=== PATIENT | female | born 1950 | race Caucasian/White ===

== ENCOUNTER 2023-12-29 05:18 | Emergency (ER) | payer OTHER ==
[~2023-12-29] VITALS: Ht 162.6 cm; Wt 68.0 kg
[2023-12-29 05:35] VITALS: O2SAT 98
[2023-12-29] MEDS: ACETAMINOPHEN 325MG TABLET PO ONE (05:59)
[2023-12-29 06:43] LABS: BASOPHILS % 0.9 % (0.0-2.0); EOSINOPHILS % 4.1 % (0.0-5.0); LYMPHOCYTES % 25.7 % (20.0-50.0); MEAN CORPUSCULAR HEMOGLOBIN 27.6 pg (28.0-32.0); MEAN CORPUSCULAR HGB CONC 32.4 g/dL (31.0-37.0); MEAN CORPUSCULAR VOLUME 85.2 fL (81.0-99.0); MEAN PLATELET VOLUME 8.2 fl (7.4-10.4); MONOCYTES % 6.9 % (2.0-8.0); NEUTROPHILS % 62.4 % (40.0-76.0); PLATELET 258 x1000/uL (130-400); RED BLOOD CELL COUNT 4.34 mill/uL (4.2-5.4); RED CELL DISTRIBUTION WIDTH 13.6 % (11.6-14.6); WHITE BLOOD COUNT 7.4 x1000/uL (4.5-11.0)
[2023-12-29 06:45] LABS: CHLORIDE 107 mEq/L (98-107); POTASSIUM 4.1 mEq/L (3.5-5.1); SODIUM 143 mEq/L (136-145)
[2023-12-29 06:46] LABS: CARBON DIOXIDE 28 mEq/L (21-32)
[2023-12-29 06:47] LABS: CALCIUM 9.8 mg/dL (8.7-10.4)
[2023-12-29 06:51] LABS: CREATININE 0.8 mg/dL (0.6-1.0)
[2023-12-29 06:52] LABS: GLUCOSE 107 mg/dL (70-105); UREA NITROGEN BLOOD 13 mg/dL (9-23)
[2023-12-29 06:53] LABS: ALANINE AMINOTRANSFERASE 14 IU/L (10-49); ALBUMIN 4.2 g/dL (3.2-4.8); ASPARTATE AMINOTRANSFERASE 18 IU/L (<34)
[2023-12-29 06:54] LABS: BILIRUBIN DIRECT 0.2 mg/dL (<=3.0); BILIRUBIN TOTAL 0.4 mg/dL (0.1-1.0); PROTEIN TOTAL 7.2 g/dL (6.0-8.3)
[2023-12-29 07:04] LABS: PROTHROMBIN TIME 10.7 sec (9.6-11.0)
[2023-12-29] MEDS ORDERED: TOPUD MT (07:19)
[2023-12-29 08:39] LABS: CLARITY URINE CLEAR (CLEAR); COLOR URINE YELLOW (YELLOW); GLUCOSE URINE NEGATIVE (NEGATIVE); KETONES URINE NEGATIVE (NEGATIVE); LEUKOCYTE ESTERASE URINE TRACE (NEGATIVE); NITRITE URINE NEGATIVE (NEGATIVE); OCCULT BLOOD URINE NEGATIVE (NEGATIVE); PH URINE 5.5 (4.5-8.0); PROTEIN URINE NEGATIVE (NEGATIVE); SPECIFIC GRAVITY URINE 1.006 (1.005-1.030); UROBILINOGEN URINE 0.2 E.U./dL (0.2-1.0)
[2023-12-29 08:57] VITALS: BP 177/69; PULSE 76; RESP 18; TEMP 36.78072; O2SAT 98
[2023-12-29 09:08] LABS: SQUAMOUS EPITHELIAL CELL URINE 1+ /lpf (RARE/1+)
[2023-12-29 09:09] LABS: WBC URINE 0-2 /hpf (0-2)
[2023-12-29 09:10] LABS: BACTERIA URINE NONE SEEN; RBC URINE 0-2 /hpf (0-2)
== END 2023-12-29 06:00 | disposition home or self-care (01) ==
LOC: ER 05:18
DX: R10.32 Left lower quadrant pain (principal); I10 Essential (primary) hypertension; E11.9 Type 2 diabetes mellitus without complications; Z90.710 Acquired absence of both cervix and uterus
CPT/HCPCS: 36415; 74176; 80048; 80076; 81003; 85025; 99284